=== PATIENT | female | born 1940 | race Caucasian/White ===

== ENCOUNTER 2019-05-05 09:37 | Outpatient (CLI) | payer MEDICARE, OTHER ==
--- NOTE | 2019-05-05 14:31 | PET ---
PET CT: HISTORY: Solitary pulmonary nodule. TECHNIQUE: PET scanning with CT attenuation correction was performed following the intravenous administration of 12 mCi [id number] in the right antecubital fossa. COMPARISON: None. CORRELATION: Images not provided. Report of CT chest dated 03/24/2019 from [facility]. FINDINGS: No malaika hypermetabolism is seen in the neck, mediastinum, hilar regions, axillae, abdomen, or pelvis . No hypermetabolic liver, adrenal, or skeletal lesions are seen. There are hypermetabolic nodules in the lungs. These have SUV of 9.4 in the right upper lobe, 7.2 in the superior segment of the right lower lobe, and 2.9 in the left upper lobe. Nodular density in th e left lower lobe demonstrates no abnormal FDG localization and has an SUV of 1.4. There is physiologic activity in the GI and tracts and the visualized portions of the brain. The CT scan used for attenuation correction demonstrates no evidence of pleural effusions or ascites. There is cholelithiasis and a 3.5 cm left cortical renal cyst. IMPRESSION: Hypermetabolic lung nodules are suspicious for malignancy/metastatic disease. POS: [facility]
== END 2019-05-05 09:38 | disposition home or self-care (01) ==
LOC: PET 09:37
PROVIDERS: ATTEND Internal Medicine Critical Care Medicine
DX: R91.8 Other nonspecific abnormal finding of lung field (principal)
CPT/HCPCS: 78815; A9552

== ENCOUNTER 2019-05-19 08:38 | Day surgery (SDC) | payer MEDICARE, OTHER ==
[2019-05-18 11:45] VITALS: BMI 30.7
[2019-05-19] MEDS ORDERED: FLU VACC TS2019-20(65YR UP)/PF 180 MCG/0.5 ML SYRINGE IM ONE (09:00)
[2019-05-19 09:02] LABS: #Basophils 0.1 thou/uL (0.0-0.2); #Eosinphils 0.1 thou/uL (0.0-0.7); #Lymphocytes 1.8 thou/uL (1.20-3.40); #Monocytes 0.6 thou/uL (0.11-0.59); #Neutrophils 7.8 thou/uL (1.40-6.50); %Basophils 0.6 % (0.0-1.0); %Eosinophils 0.8 % (0.0-10.0); %Monocytes 5.9 % (0.0-10.0); %Neutrophils 75.6 % (42.0-75.0); Hemoglobin 15.8 g/dL (12.0-16.0); Mean Corpuscular HGB CONC 33.4 g/dL (32.0-36.0); Mean Corpuscular Hemoglobin 31.5 pg (27.0-31.0); Mean Corpuscular Volume 94.4 fL (78.0-98.0); Mean Platelet Volume 7.2 fL (7.4-10.4); Platelet Count 309 thou/uL (130-400); Red Blood Cell (RBC) Count 5.01 mill/uL (4.20-5.40); White Blood Cell (WBC) Count 10.3 thou/uL (4.8-10.8)
[2019-05-19 09:04] LABS: INR-International Normal Ratio 0.9; PTT 33.7 SEC (22.9-36.1); Prothrombin Time 12.6 SEC (12.0-14.7)
[2019-05-19 10:19] VITALS: BP 148/70; TEMP 98
[2019-05-19] MEDS ORDERED: Sodium Bicarbonate 2.5 MEQ/5 ML VIAL ONE (10:23)
--- NOTE | 2019-05-19 11:49 | RAD ---
EXAM: XR Chest Insp/Exp PROVIDED CLINICAL HISTORY: Post lung biopsy COMPARISON: PET scan 05/05/2019 FINDINGS: Cardiac and mediastinal silhouette is within normal limits. Vascular calcification involves the aorti c arch. Bilateral parenchymal opacities as previously described noted. Emphysematous changes are seen. No pleural fluid or pneumothorax apparent. IMPRESSION: No evidence for pneumothorax.
--- NOTE | 2019-05-19 12:22 | RAD ---
EXAM: XR Chest Insp/Exp PROVIDED CLINICAL HISTORY: Post biopsy mass superior segment right lower lobe. Patient has history of prior partial right upper lobectomy. The patient had decreased oxygen saturation from baseline. COMPARISON: 05/19/2019 at 1128 hours. FINDINGS: Cardiac silhouette is magnified by projection. Postoperative changes right lung are again seen. Paren chymal opacity in the right lung apex and left upper lung zone are again present. There are increased interstitial densities within the right hemithorax with findings likely related to emphysem atous changes in the upper lung zones. No pleural effusion or pneumothorax is identified. No interval change from prior exam. IMPRESSION: No evidence of pneumothorax or pleural effusion. Chest is stable compared to recent study.
--- NOTE | 2019-05-19 13:47 | RAD ---
Chest 2 views inspiratory expiratory HISTORY: Lung mass. Biopsy. COMPARISON: Earlier exam on the same date. FINDINGS: Each lung remains well-inflated. Postoperative changes of the right hilum again demonstrate d. Extensive parenchymal scarring throughout each lung. No evidence of pneumothorax. IMPRESSION : Stable exam. No evidence of pneumothorax. Patient will be cleared radiographically for discharge.
--- NOTE | 2019-05-20 10:26 | CT ---
PROCEDURE: CT Lung Perc Biopsy PROVIDED CLINICAL HISTORY: Prior history of partial right upper lobectomy secondary to pulmonary lesions with reported benign fi ndings. Patient has newly developed lesions within the superior segment right lower lobe as well as in the left upper lobe which demonstrate FDG avidity. Biopsy of the lesion in the superior segment ri ght lower lobe was requested. COMPARISON: PET/CT exam on 05/05/2019 TECHNIQUE: The procedure including the risks and complications were explained to the patient, and informed conse nt was obtained. Patient was placed on the CT scan table in the prone position. Limited noncontrasted CT scan was obtained through the chest with grid localizer in place. An area overlying the lesion posterior aspect superior segment left lower lobe was marked, and the area was meticulously prepped and draped in usual sterile fashion. Skin and subcutaneous tissues were infiltrated with buffered 1% lidocaine for local anesthesia. Small skin incision was made. A 19-gauge guide needle was advanced followed by axial noncontrasted CT images. This was repeated until the needle was placed within the most peripheral aspect of the irregu lar masslike lesion superior segment right lower lobe. A total of three 20-gauge core needle biopsy specimens were obtained utilizing coaxial technique. Aspiration through the guide needle was then obt ained as requested by the pathologist. Needle was removed, and hemostasis was achieved with direct pressure. Dry sterile dressing was placed at puncture site. Limited noncontrasted CT scan was obtained through the chest with demonstrated no pleural fluid or pn eumothorax or findings to suggest a hematoma in the subcutaneous soft tissues. Immediate follow-up chest x-ray also demonstrated no pleural effusion or pneumothorax. Patient was transported to radiology nurses holding area for further monitoring prior to discharge. IMPRESSION: Technically successful CT-guided percutaneous biopsy of an irregular masslike lesion in the superior segment right lower lobe. Pathology is currently pending. Transcribed Date/Time: 05/20/2019 10:25 AM
== END 2019-05-19 13:50 | disposition home or self-care (01) ==
LOC: CT 08:38
PROVIDERS: ATTEND Internal Medicine Critical Care Medicine
PROC: 0BBF3ZX Excision of Right Lower Lung Lobe, Percutaneous Approach, Diagnostic (ICD-10-PCS; principal; 2019-05-19)
DX: J98.4 Other disorders of lung (principal); Z90.2 Acquired absence of lung [part of]
CPT/HCPCS: 32405; 36415; 71045; 77012; 85025; 85610; 85730; 87070; 87102; 87116; 87205; 87206; 88305; 88312; 88333; 88334

== ENCOUNTER 2019-08-05 10:41 | Outpatient (CLI) | payer MEDICARE, OTHER ==
--- NOTE | 2019-08-05 12:55 | CT ---
EXAM: CT of the chest without contrast HISTORY: Pulmonary nodules COMPARISON: PET CT 05/05/2019 TECHNIQUE: Multiple contiguous axial images were obtained in a CT the chest without contrast. Coronal and sagittal reformats were performed. FINDINGS: HEART: Normal in size without focal cardiac abnormality MEDIASTINUM: No hilar or mediastinal lymphadenopathy. Atherosclerotic calcifications in the aorta and coronary arteries. Evaluation of the mediastinum is limited without IV contrast. LUNGS: There are stable spiculated regions in the bilateral upper lobes. Calcifications are seen in o ne of the areas of spiculation in the right lung. Stable scarring is seen in both lung bases. PLEURAL SPACE: No pneumothorax or pleural effusion. CHEST WALL SOFT TISSUES: Unremarkable OSSEOUS STRUCTURES: Degenerative changes in the spine. VISUALIZED SUBDIAPHRAGMATIC STRUCTURES: 4.6 cm left renal cyst. IMPRESSION: Stable spiculated regions in the bilateral upper lobes. These were hypermetabolic. Continued follow-u p is necessary to ensure continued stability.
== END 2019-08-05 10:42 | disposition home or self-care (01) ==
LOC: BICCT 10:41
PROVIDERS: ATTEND Internal Medicine Critical Care Medicine
DX: R91.1 Solitary pulmonary nodule (principal)
CPT/HCPCS: 71250

== ENCOUNTER 2020-01-25 09:44 | Outpatient (CLI) | payer MEDICARE, OTHER ==
--- NOTE | 2020-01-25 10:54 | CT ---
CT THORAX NONCONTRAST: DATE: 01/25/2020 HISTORY: 79-year-old female follow-up hypermetabolic bilateral pulmonary lesions. COMPARISON: 08/05/2019 FINDINGS: Pulmonary scar in right upper lobe anterior portion of apical segment with surgical clip. No interval change. Superior segment of right lower lobe (located towards right apex because of chronic volume loss of ri ght upper lobe and compensatory hyperinflation of right lower lobe) had a complex shaped, moderately large pulmonary stellate mass which was hypermetabolic. This has become smaller in volume and retracted. Lateral aspect of left upper lobe: Approximately 5 x 1.3 x 1 cm pulmonary soft tissue density lesion with irregular, stellate margins Region of consolidation in the left lower lobe that was biopsied under CT guidance on 05/19/2019, had resolved by 08/05/2019, and currently has not recurred. There is a new 0.5 x 0.4 x 0.5 cm noncalcified irregularly-shaped pulmonary nodule located medially w ithin the superior segment of left lower lobe. Located more laterally and superiorly, there is another new noncalcified, spiculated pulmonary nodule in the superior segment of left lower lobe, measuring 0.6 x 0.4 x 0.6 cm. Transversely oriented platelike pulmonary scar at along the basilar segments of left lower lobe, stab le. Subpleural pulmonary scar at lateral basilar segment right lower lobe, stable. No pulmonary edema, pleural effusion, or pneumothorax. No cardiomegaly or pericardial effusion. Atherosclerotic calcific patient without aneurysm of thoracic aorta. Coronary artery calcifications all major vessels. IMPRESSION: 1) the superior segment right lower lobe irregularly-shaped, moderately large hypermetabolic pulmonar y lesion has involuted. It may represent scar and/or infection/inflammatory process. However, continued follow-up CTs are recommended. 2) no interval change in the left upper lobe long pulmonary stellate lesion. 3) architectural distortion of right lung with chronic volume loss probably associated with pulmonary scar in right upper lobe with metallic clip. 4) 2 new subcentimeter superior segment left lower lobe pulmonary nodules. Recommend follow-up.
== END 2020-01-25 09:45 | disposition home or self-care (01) ==
LOC: BICCT 09:44
PROVIDERS: ATTEND Internal Medicine Critical Care Medicine
DX: R91.8 Other nonspecific abnormal finding of lung field (principal); J98.4 Other disorders of lung
CPT/HCPCS: 71250

== ENCOUNTER 2020-11-01 09:02 | Outpatient (CLI) | payer MEDICARE, OTHER | END 2020-11-01 09:03 | disposition home or self-care (01) | LOC: BICCT 09:02 | PROVIDERS: ATTEND Internal Medicine Critical Care Medicine | DX: R91.1 Solitary pulmonary nodule (principal); J98.4 Other disorders of lung; J43.9 Emphysema, unspecified | CPT/HCPCS: 71250 ==